=== PATIENT | male | born 1945 | race Caucasian/White ===

== ENCOUNTER 2018-04-30 16:04 | Emergency (ER) | payer OTHER ==
[~2018-04-30] VITALS: Ht 177.8 cm; Wt 113.4 kg
[~2018-04-30 16:04] MED LIST: ALLOPURINOL 30300 M1 PO; ASPIRIN EC325 M1 PO; BENICAR20 MG PO; CARDURA XL4 MG; CARDURA4 MG PO; COLACE100 MG PO; DETROL LA4 MG PO; FLOMAX PO; HYDROCHLOROTHIA25 M1 PO; KEFLEX500 MG PO; LOPRESSOR100 MG PO; METAMUCIL PAC1 UDPK1 GT; MIRALAX255 GM PO; MOBIC15 MG; MOM; NORCO 5-325 TA1 EACH PO; OXYCODONE HCL 55 MG PO; PEPCID AC20 M1 PO; TOPROL XL100 MG PO; VITAMIN D2000 UNIT PO
[2018-04-30] MEDS ORDERED: KEPPRA 500 MG500 M1 PO (16:21)
[2018-04-30] MEDS ORDERED: COZAAR 25 MG TA25 M1 PO (16:21)
[2018-04-30 16:39] LABS: ABSOLUTE EOSINOPHILS 0.2 thou/uL (0.0-0.7); ABSOLUTE LYMPHOCYTES 1.7 thou/uL (0.8-5.3); ABSOLUTE MONOCYTES 0.5 thou/uL (0.0-1.2); ABSOLUTE NEUTROPHILS 5.5 thou/uL (1.6-8.1); BASOPHILS 0.3 %; EOSINOPHILS 2.2 %; HEMATOCRIT 46.1 % (42.0-52.0); HEMOGLOBIN 15.5 gm/dL (14.0-18.0); LYMPHOCYTES 21.6 %; MCH 31.8 pg (26.0-34.0); MCHC 33.5 g/dL (28.0-37.0); MCV 94.7 fL (80.0-100.0); MONOCYTES 6.3 %; MPV 8.2 fl. (7.2-11.1); NUCLEATED RBCS 0 /100WBC; PLATELET COUNT* 156 thou/uL (150-400); POLYS 69.6 %; RBC 4.87 mil/uL (4.50-6.00); RDW-CV 14.1 % (10.5-14.5); WBC 7.8 thou/uL (4.0-11.0)
[2018-04-30 16:51] LABS: APTT 27.3 Seconds (25.0-31.3); INR 1.1; PROTIME 10.7 Seconds (9.20-11.50)
[2018-04-30 16:56] LABS: ANION GAP 6 mmol/L (7-16); BUN 25 mg/dL (7-18); CALCIUM 9.1 mg/dL (8.5-10.1); CHLORIDE 108 mmol/L (98-107); CO2 30 mmol/L (21-32); CREATININE 1.5 mg/dL (0.6-1.3); GLUCOSE 127 mg/dL (70-99); POTASSIUM 3.9 mmol/L (3.5-5.1); SODIUM 144 mmol/L (136-145)
[2018-04-30 17:01] LABS: ALBUMIN 3.3 g/dL (3.4-5.0); ALKALINE PHOSPHATASE 72 U/L (46-116); NT-PRO BRAIN NAT PEPTIDE 403 pg/mL (<300); SGOT 9 U/L (15-37); SGPT 27 U/L (30-65); TOTAL BILIRUBIN 0.4 mg/dL (<0.1-1.0); TOTAL PROTEIN 6.6 g/dL (6.4-8.2); TROPONIN-I LEVEL <0.06 ng/mL (<0.06)
[2018-04-30 18:42] VITALS: BP 202/96
--- NOTE | 2018-05-01 11:32 | EKG ---
[place] [address] ELECTROCARDIOGRAM REPORT Name: ANDERSON MUNGUIA Room: 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 : 1945 Requested By: Karlo Alves Order Number: [id number] MD: Augusto Chau Measurements Intervals [place] Rate: 68 P: 35 SC: 160 QRS: -3 QRSD: 92 T: 71 QT: 406 QTc: 432 Interpretive Statements Sinus rhythm Left atrial enlargement Abnormal R-wave progression, late transition Probable left ventricular hypertrophy ST elevation, consider repolarization abnormality Baseline wander in lead(s) V3 Compared to ECG 12/31/2014 04:09:04 no change Electronically Signed On 05-01-2018 11:32:35 CDT by Augusto Chau [email or web address] <ELECTRONICALLY SIGNED> By: Augusto Chau MD, [facility] 05/01/18 1132 1653 1653 Augusto Chau MD, [facility] /EPI
== END 2018-04-30 18:43 | disposition home or self-care (01) ==
LOC: M.ERS 16:04
PROVIDERS: Family Medicine
DX: R53.1 Weakness (principal); I10 Essential (primary) hypertension; Z88.8 Allergy status to other drugs, medicaments and biological substances

== ENCOUNTER → 2018-05-04 | Outpatient (CLI) | payer OTHER ==
[~2018-05-04] MED LIST changes: +COZAAR 25 MG TA25 M1 PO; +KEPPRA 500 MG500 M1 PO
== END ==
LOC: M.MRI 11:36
DX: G45.9 Transient cerebral ischemic attack, unspecified (principal); I63.9 Cerebral infarction, unspecified; G81.91 Hemiplegia, unspecified affecting right dominant side

== ENCOUNTER 2020-07-12 14:55 | Emergency (ER) | payer MEDICARE ==
[~2020-07-12] VITALS: Ht 177.8 cm; Wt 102.1 kg
[2020-07-12] MEDS ORDERED: PLAVIX 75 MG TA75 MG PO (15:06)
[2020-07-12] MEDS ORDERED: ARICEPT10 M1 PO (15:06)
[2020-07-12 15:32] LABS: ABSOLUTE EOSINOPHILS 0.3 thou/uL (0.0-0.7); ABSOLUTE MONOCYTES 0.7 thou/uL (0.0-1.2); ABSOLUTE NEUTROPHILS 5.8 thou/uL (1.6-8.1); BASOPHILS 0.4 %; EOSINOPHILS 3.1 %; HEMATOCRIT 47.2 % (42.0-52.0); LYMPHOCYTES 22.9 %; MCH 31.6 pg (26.0-34.0); MCHC 33.8 g/dL (28.0-37.0); MCV 93.5 fL (80.0-100.0); MONOCYTES 8.2 %; MPV 8.3 fl. (7.2-11.1); NUCLEATED RBCS 0 /100WBC; PLATELET COUNT* 144 thou/uL (150-400); POLYS 65.4 %; RBC 5.04 mil/uL (4.50-6.00); RDW-CV 14.2 % (10.5-14.5); WBC 8.9 thou/uL (4.0-11.0)
[2020-07-12 15:36] LABS: CREATININE 1.6 mg/dL (0.6-1.3); POTASSIUM 3.8 mmol/L (3.5-5.1)
[2020-07-12 15:41] LABS: ALBUMIN 3.6 g/dL (3.4-5.0); TOTAL BILIRUBIN 0.5 mg/dL (<0.1-1.0); TOTAL PROTEIN 7.3 g/dL (6.4-8.2)
[2020-07-12 16:38] LABS: URINE BILIRUBIN NEGATIVE (Negative); URINE BLOOD NEGATIVE (Negative); URINE CLARITY CLEAR; URINE COLOR YELLOW; URINE GLUCOSE-RANDOM NEGATIVE (Negative); URINE KETONES NEGATIVE (Negative); URINE LEUKOCYTES-REFLEX NEGATIVE (Negative); URINE NITRITE-REFLEX NEGATIVE (Negative); URINE PROTEIN NEGATIVE (Negative); URINE UROBILINOGEN 0.2 E.U./dl (0.2-1.0)
[2020-07-12 17:47] VITALS: BP 186/78
--- NOTE | 2020-07-13 10:33 | EKG ---
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: [facility] : 1945 Requested By: Agustina Trammell Order Number: [id number] : Tray Denton Measurements Intervals [place] Rate: 68 P: 49 OR: 170 QRS: 7 QRSD: 98 T: 66 QT: 432 QTc: 460 Interpretive Statements Sinus rhythm Left atrial enlargement Compared to ECG 04/30/2018 16:53:57 ST (T wave) deviation no longer present Electronically Signed On 07-13-2020 10:33:40 CDT by Tray Denton [email or web address] <ELECTRONICALLY SIGNED> By: Tray Denton MD, [facility] 07/13/20 1033 1515 1515 Tray Denton MD, [facility] /EPI
== END 2020-07-12 17:47 | disposition home or self-care (01) ==
LOC: M.ERS 14:55
PROVIDERS: Physician Assistant
DX: I10 Essential (primary) hypertension (principal); Z88.8 Allergy status to other drugs, medicaments and biological substances; Z79.899 Other long term (current) drug therapy